=== PATIENT | female | born 1940 | race Caucasian/White ===

== ENCOUNTER 2016-10-17 13:17 | Outpatient (CLI) | payer MEDICARE, OTHER ==
--- NOTE | 2016-10-17 19:01 | Diagnostic Imaging Report ---
[facility] [address] [facility] [address] [address] Report Submission Date: Oct 17, 2016 6:00:23 PM TRUCK CRANE OPERATOR Patient Study Name: SHARONA REYNOLDS Date: Oct 17, 2016 3:05:55 PM TRUCK CRANE OPERATOR Modality Type: CT\SR Gender: F Description: CT MAXILLOFACIAL W/O D : 44 Institution: [facility] Physician: MOISÉS MILLS CT of the paranasal sinuses Clinical history: Headaches. Recurring sinus blockages for 3 years. Technique: CT of the paranasal sinuses is performed in contiguous axial slices with sagittal and coronal reconstructions. Findings: There is artifact from the patient's metallic dental work. Mucosal thickening is evident in the right maxillary sinus. Frontal sinuses are hypoplastic. There is no air-fluid level or bony destruction. Nasal septum is in midline position and the nasal airway passages are patent. Ostiomeatal complex is within normal limits. Intracranial atherosclerosis is incidentally noted. Impression: 1. Mucosal thickening right maxillary sinus. 2. No evidence of acute sinusitis. Electronically signed on Oct 17, 2016 6:00:23 PM TRUCK CRANE OPERATOR by: Clay HERNANDEZ
--- NOTE | 2016-10-18 13:16 | OP Clinic Progress Note ---
REFERRING PHYSICIAN: Dr. Harris Brock REASON FOR VISIT: This 76-year-old lady is seen with persistent left-sided Eustachian tube dysfunction, pressure, and discomfort overlying the left maxilla, headaches in the ethmoid area and in the retro-orbital area and around the eyebrows, more on the left than on the right. She gets it moderately improved while she is actually taking antibiotics and she has been taking doxycycline with no significant untoward effects but they simply do not last and she does not get enough improvement. Also, has quite significant pain particularly lying down at night, pressure and discomfort and aching in the left ear with muffling. She has a very retracted left ear. I gave her different options. I do believe she ought to go ahead and get a CT scan of the sinuses. I went over risks, problems, complications of doing a myringotomy of the left ear. The patient consented to that and understands there could be an ongoing perforation of the left ear with no guarantee of improvement. NAME OF PROCEDURE DONE DURING THE CLINIC TODAY: Left myringotomy and placement of paper patch. DESCRIPTION OF PROCEDURE: Phenol topical anesthesia was used in the anteroinferior quadrant in a J-shaped fashion. The myringotomy was made along this anesthetized site. A paper patch was placed over this. She really does not have fluid but she does have a markedly and a significantly retracted umbo of the malleus. The patient tolerated the procedure well. She notes fairly marked improvement and generally feels very pleased. She felt the overall procedure was not too disagreeable. PLAN: The patient will go ahead and get a CT scan of the sinuses and I will see her back in about 2 weeks. Aural hygiene is explained. cc: Dr. Harris HERNANDEZ
== END 2016-10-17 13:20 ==
LOC: ENT 13:17
PROVIDERS: ATTEND Otolaryngology
DX: H69.00 Patulous Eustachian tube, unspecified ear (principal)
CPT/HCPCS: 69610; 70486; G0463

== ENCOUNTER 2017-06-24 16:03 | Outpatient (CLI) | payer MEDICARE, OTHER | END 2017-06-24 16:04 | LOC: LABRHC 16:03 | PROVIDERS: ATTEND Family Medicine | DX: R30.0 Dysuria (principal) | CPT/HCPCS: 87086 ==

== ENCOUNTER 2017-08-07 11:33 | Outpatient (CLI) | payer MEDICARE, OTHER ==
[2017-08-07 11:46] LABS: BASOPHILS % 0.7 (0.0-1.5); EOSINOPHILS % 1.6 % (0.0-6.8); MEAN CORPUSCULAR HEMOGLOBIN 30.6 pg (28.0-34.0); MEAN CORPUSCULAR VOLUME 93.5 fl (80.0-100.0); MONOCYTES % 5.1 % (0.0-11.0); NEUTROPHILS # 4.3 # k/uL (1.4-7.7)
[2017-08-07 12:52] LABS: eGFR (African) > 60; eGFR (Non-African) > 60
== END 2017-08-07 11:40 ==
LOC: LAB 11:33
PROVIDERS: ATTEND Family Medicine
DX: I10 Essential (primary) hypertension (principal); E78.00 Pure hypercholesterolemia, unspecified
CPT/HCPCS: 36415; 80053; 80061; 85025

== ENCOUNTER 2018-08-11 11:05 | Outpatient (CLI) | payer MEDICARE, OTHER ==
[2018-08-11 11:55] LABS: MEAN CORPUSCULAR HEMOGLOBIN 30.3 pg (28.0-34.0)
[2018-08-11 11:56] LABS: BASOPHILS % 0.5 (0.0-1.5); EOSINOPHILS % 2.2 % (0.0-6.8); MONOCYTES % 6.5 % (0.0-11.0); NEUTROPHILS # 5.5 # k/uL (1.4-7.7)
[2018-08-11 11:59] LABS: eGFR (Non-African) > 60
== END 2018-08-11 11:10 ==
LOC: LAB 11:05
PROVIDERS: ATTEND Family Medicine
DX: E78.00 Pure hypercholesterolemia, unspecified (principal); I10 Essential (primary) hypertension
CPT/HCPCS: 36415; 80053; 80061; 85025

== ENCOUNTER 2019-05-18 17:00 | Outpatient (CLI) | payer OTHER | END 2019-05-18 17:03 | LOC: LABRHC 17:00 | PROVIDERS: ATTEND Family Medicine | DX: R30.0 Dysuria (principal) | CPT/HCPCS: 87086 ==

== ENCOUNTER 2019-08-19 11:50 | Outpatient (CLI) | payer OTHER ==
[2019-08-19 12:26] LABS: BASOPHILS % 0.5 % (0.0-1.5); NEUTROPHILS # 3.8 # k/uL (1.4-7.7)
[2019-08-19 13:04] LABS: HDL 64 mg/dL (>40); eGFR (Non-African) > 60
== END 2019-08-19 11:55 ==
LOC: LAB 11:50
PROVIDERS: ATTEND Family Medicine
DX: I10 Essential (primary) hypertension (principal); E78.00 Pure hypercholesterolemia, unspecified
CPT/HCPCS: 36415; 80053; 80061; 85025